=== PATIENT | female | born 1985 | race African-American/Black ===

== ENCOUNTER 2016-09-07 18:19 | Emergency (ER) | payer OTHER ==
[~2016-09-07] VITALS: Ht 157.5 cm; Wt 90.0 kg
[~2016-09-07 18:19] MED LIST: ACET1CAP18 PO; DOCU1CAP39 PO; MILKSUS PO; WALKER WHEELS/F1 MIS
[2016-09-07 18:22] VITALS: BP 140/92; PULSE 107; RESP 20; TEMP 97.5; O2SAT 98
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
[2016-09-07] MEDS ORDERED: IBUPROFEN 800 MG TAB PO ONE (19:00)
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
[2016-09-07] MEDS ORDERED: IBUP800T23 PO (19:22)
== END 2016-09-07 19:45 | disposition home or self-care (01) ==
LOC: NEPK 18:19
DX: S60.212A Contusion of left wrist, initial encounter (principal); I10 Essential (primary) hypertension; F17.210 Nicotine dependence, cigarettes, uncomplicated; W22.8XXA Striking against or struck by other objects, initial encounter; Y93.9 Activity, unspecified; Y92.9 Unspecified place or not applicable; Y99.8 Other external cause status
CPT/HCPCS: 73110; 99283